=== PATIENT | female | born 1970 | race Caucasian/White ===

== ENCOUNTER 2021-09-02 23:45 | Emergency (ER) | payer OTHER ==
[2021-09-03 00:11] VITALS: BP 138/95; PULSE 104; TEMP 98.2; BMI 28.8
[2021-09-03] MEDS ORDERED: ACETAMINOPHEN 325 MG TABLET (FP) PO ONE (02:51)
[2021-09-03] MEDS ORDERED: ACETAMINOPHEN 325 MG TABLET (FP) ONE (02:56)
== END 2021-09-03 04:04 | disposition home or self-care (01) ==
LOC: JER 23:45
DX: R23.3 Spontaneous ecchymoses (principal); R22.0 Localized swelling, mass and lump, head
CPT/HCPCS: 70450-TC; 70480-TC; 70486-TC; 72125-TC; 99285-25

== ENCOUNTER 2022-08-03 11:14 | Emergency (ER) | payer OTHER ==
[2022-08-03 11:38] VITALS: BP 125/70; PULSE 82; RESP 18; TEMP 98; BMI 36.5
[2022-08-03] MEDS ORDERED: FLUORESCEIN NA 1 EA STRIP OU ONE (13:24)
[2022-08-03] MEDS ORDERED: TETRACAINE 0.5% HCL 0.6ML DROPPER.BOTTLE OU ONE (13:24)
[2022-08-03] MEDS ORDERED: TETRACAINE 0.5% OPHTH SOLN 2 ML BOTTLE ONE (13:26)
[2022-08-03] MEDS ORDERED: FLUORESCEIN NA 1 EA STRIP ONE (13:27)
[2022-08-03] MEDS ORDERED: ERYTHROMYCIN 0.5% OPHTHALMIC OINTMENT 3.5 GM TUBE OU ONE (13:39)
[2022-08-03] MEDS ORDERED: ERYTHROMYCIN 0.5% OPHTHALMIC OINTMENT 3.5 GM TUBE ONE (14:59)
[2022-08-03] MEDS ORDERED: IBUPROFEN 600 MG TABLET (FP) PO ONE ×2 (15:55→16:35)
== END 2022-08-03 17:02 | disposition home or self-care (01) ==
LOC: JERFT 11:14 → JER 11:14 → JERFT 17:02
DX: H16.003 Unspecified corneal ulcer, bilateral (principal)
CPT/HCPCS: 99283-25

== ENCOUNTER 2024-09-14 19:33 | Emergency (ER) | payer OTHER ==
[2024-09-14 20:01] VITALS: BP 122/70; PULSE 102; RESP 16; TEMP 97.8; BMI 36.5
== END 2024-09-14 21:20 | disposition home or self-care (01) ==
LOC: JER 19:33
DX: K64.4 Residual hemorrhoidal skin tags (principal); K62.89 Other specified diseases of anus and rectum; K59.00 Constipation, unspecified
CPT/HCPCS: 99283-25

== ENCOUNTER 2025-01-24 22:23 | Emergency (ER) | payer OTHER ==
[2025-01-24 22:31] VITALS: BP 144/71; PULSE 96; RESP 20; TEMP 98; BMI 31.9
[2025-01-24] MEDS: diphenhydrAMINE HCL 25 MG CAPSULE (FP) PO ONE (22:46)
[2025-01-24] MEDS ORDERED: diphenhydrAMINE HCL 25 MG CAPSULE (FP) PO ONE (22:46)
== END 2025-01-24 22:58 | disposition home or self-care (01) ==
LOC: JERFT 22:23
DX: L29.9 Pruritus, unspecified (principal); L30.8 Other specified dermatitis
CPT/HCPCS: 99283-25